=== PATIENT | female | born 1930 | race Caucasian/White ===

== ENCOUNTER → 2016-12-15 | Outpatient (CLI) | payer MEDICARE, BC ==
--- NOTE | 2016-12-15 11:25 | CR ---
EXAMINATION: Abdomen HISTORY: Hypertension COMPARISON: None TECHNIQUE: AP and upright views FINDINGS: There is no free air under the diaphragm. There is a nonobstructive bowel gas pattern. No abnormal calcifications. No organomegaly. Degenerative changes are noted within the lumbar spine and within the left hip. IMPRESSION: 1. Nonobstructive bowel gas pattern.
--- NOTE | 2016-12-15 16:21 | CR ---
EXAMINATION: Lumbar spine HISTORY: Macular degeneration COMPARISON: None TECHNIQUE: AP and lateral views of the lumbar spine FINDINGS: There is straightening of the normal lumbar lordosis with a trace levocurvature. The verte bral body heights appear grossly maintained. Marginal osteophytes are noted. The SI joints are symme tric. Bone mineralization is normal. Disc space narrowing is noted at L4-L5 and L5-S1. No fracture o r acute osseous abnormality demonstrated. IMPRESSION: Moderate degenerative changes within the lumbar spine without acute findings.
== END ==
LOC: MW.CHIM 10:01
PROVIDERS: ATTEND Internal Medicine
DX: I10 Essential (primary) hypertension (principal); H35.30 Unspecified macular degeneration; M47.816 Spondylosis without myelopathy or radiculopathy, lumbar region
CPT/HCPCS: 72100; 72100-26; 74020; 74020-26; 81001; G0463

== ENCOUNTER 2019-01-23 10:01 | Inpatient (IN) | payer MEDICARE, BC ==
[2019-01-23] MEDS ORDERED: Acetaminophen 325 MG Tab PO PRN (10:32)
[2019-01-23] MEDS ORDERED: Sodium Chloride 0.9% 2.5 ML Syringe FLUSH PRN (10:32)
--- NOTE | 2019-01-23 11:25 | PCM.HP ---
<Vijaya Medrano M - Last Filed: 01/23/19 13:56> H&P History of Present Illness - General Date of Service: 01/23/19 Admit Problem/Dx: Admission Diagnosis/Problem Admission Diagnosis/Problem Atrial fibrillation Source of Information: Patient, Old Records History Limitations: Reports: No Limitations - History of Present Illness Initial Comments - Free Text/Narative: This 88 year old female with pmh of paroxysmal atrial fibrillation, HTN and hx of partial gastrectomy presented today for loading of Sotalol for treatment of atrial fibrilliaton. Dr Flores recommends close monitoring while this medication is initiated. She reports she is feeling well, having some palpitations this morning, with HR as high as 140s, but reports her BP was well controlled. She denies chest pain or SOB. No fevers or chills. She has been taking her Xarelto nightly with her supper. Denies any other concerns currently. Will admitted to ICU for close monitoring for at least 3 days while Sotalol is initiated. Consult Dr Flores. Obtain EKG on admission along with basic labwork. - Related Data Allergies/Adverse Reactions: Allergies Allergy/AdvReac Type Severity Reaction Status Date / Time amlodipine besylate Allergy Cannot Verified 08/01/18 04:21 [From Lotrel] Remember benazepril HCl [From Lotrel] Allergy Cannot Verified 08/01/18 04:21 Remember iodine Allergy Hives Verified 01/23/19 10:38 meclizine Allergy Cannot Verified 08/01/18 04:21 Remember olmesartan medoxomil Allergy Cannot Verified 08/01/18 04:21 [From Benicar] Remember Penicillins Allergy Cannot Verified 08/01/18 04:21 Remember Sulfa (Sulfonamide Allergy Cannot Verified 08/01/18 04:21 Antibiotics) Remember sulfamethoxazole Allergy Cannot Verified 08/01/18 04:21 [From Bactrim] Remember trimethoprim [From Bactrim] Allergy Cannot Verified 08/01/18 04:21 Remember delcort Allergy Cannot Uncoded 08/01/18 04:21 Remember Home Medications: Home Meds Albuterol Sulfate [Proair Respiclick] 1 puff IH Q4HR PRN 08/01/18 [History] Brimonidine [Alphagan 0.2% Ophth Soln] 1 drop EYEBOTH TID 08/01/18 [History] Diltiazem HCl [Cartia Xt] 180 mg PO BID 08/01/18 [History] Esomeprazole [NexIUM] 40 mg PO DAILY 08/01/18 [History] Latanoprost [Xalatan] 1 drop EYEBOTH DAILY 08/01/18 [History] Losartan Potassium [Cozaar] 50 mg PO DAILY 08/01/18 [History] Rivaroxaban [Xarelto] 20 mg PO DAILY 08/01/18 [History] Rosuvastatin Calcium [Crestor] 40 mg PO DAILY 08/01/18 [History] methylPREDNISolone [Methylprednisolone] 4 mg PO DAILY 08/01/18 [History] Past Medical History HEENT History: Reports: Glaucoma Cardiovascular History: Reports: Afib, High Cholesterol, Hypertension. 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 Endocrine/Metabolic History: Denies: Diabetes, Type II - Infectious Disease History Infectious Disease History: Reports: Chicken Pox, Measles, Mumps - Past Surgical History GI Surgical History: Reports: Appendectomy, Other (See Below) Other GI Surgeries/Procedures: stomach tumor Female Surgical History: Reports: Hysterectomy Social & Family History - Family History Family Medical History: Noncontributory - Tobacco Use Smoking Status *Q: Never Smoker Second Hand Smoke Exposure: No - Caffeine Use Caffeine Use: Reports: None - Recreational Drug Use Recreational Drug Use: No - Living Situation & Occupation Occupation: Retired H&P Review of Systems - Review of Systems: Review Of Systems: See Below General: Reports: No Symptoms. Denies: Fever, Chills, Malaise, Weakness HEENT: Reports: No Symptoms. Denies: Headaches, Sinus Congestion, Vertigo Pulmonary: Reports: No Symptoms. Denies: Shortness of Breath Cardiovascular: Reports: Palpitations. Denies: Chest Pain, Dyspnea on Exertion , Edema Gastrointestinal: Reports: No Symptoms. Denies: Abdominal Pain, Constipation, Diarrhea, Nausea, Vomiting Genitourinary: Reports: No Symptoms Musculoskeletal: Reports: No Symptoms Skin: Reports: No Symptoms Psychiatric: Reports: No Symptoms Neurological: Reports: No Symptoms Hematologic/Lymphatic: Reports: No Symptoms Immunologic: Reports: No Symptoms Exam - Exam Exam: See Below - Vital Signs Weight: 61.915 kg - Exam General: Alert, Oriented, Cooperative Neck: Supple, Trachea Midline Lungs: Clear to Auscultation, Normal Respiratory Effort Cardiovascular: Irregular Rhythm, Tachycardia. No: Systolic Murmur, Diastolic Murmur GI/Abdominal Exam: Normal Bowel Sounds, Soft, Non-Tender Back Exam: Normal Inspection, Full Range of Motion Extremities: Normal Inspection, Normal Range of Motion, Non-Tender, No Pedal Edema Neuro Extensive - Mental Status: Alert, Oriented x3, Normal Mood/Affect Neuro Extensive - Motor, Sensory, Reflexes: CN II-XII Intact Psychiatric: Alert, Normal Affect, Normal Mood - Patient Data Lab Results Last 24 hrs: Laboratory Results - last 24 hr 01/23/19 Range/Units 10:45 WBC 6.64 (4.0-11.0) K/uL RBC 4.75 (4.30-5.90) M/uL Hgb 13.7 (12.0-16.0) g/dL Hct 41.0 (36.0-46.0) % MCV 86.3 (80.0-98.0) fL MCH 28.8 (27.0-32.0) pg MCHC 33.4 (31.0-37.0) g/dL RDW Std Deviation 45.8 (28.0-62.0) fl RDW Coeff of Vickey 15 (11.0-15.0) % Plt Count 227 (150-400) K/uL MPV 10.60 (7.40-12.00) fL Nucleated RBC % 0.0 /100WBC Nucleated RBCs # 0 K/uL Result Diagrams: 01/23/19 10:45 01/23/19 10:45 EKG INTERPRETATION EKG Date: 01/23/19 Rhythm: A-Fib Rate (Beats/Min): 140 P-Wave: Present QRS: Normal ST-T: Normal QT: Normal - Problem List (1) Paroxysmal atrial fibrillation SNOMED Code(s): 544456534 ICD Code: I48.0 - PAROXYSMAL ATRIAL FIBRILLATION Status: Acute Current Visit: Yes (2) Anticoagulated SNOMED Code(s): 445878443, 954174614 ICD Code: Z79.01 - MYCOLOGY TEACHER (CURRENT) USE OF ANTICOAGULANTS Status: Chronic Current Visit: Yes (3) HTN (hypertension) SNOMED Code(s): 84773456 ICD Code: I10 - ESSENTIAL (PRIMARY) HYPERTENSION Status: Chronic Current Visit: Yes (4) GERD (gastroesophageal reflux disease) SNOMED Code(s): 786342385 ICD Code: K21.9 - GASTRO-ESOPHAGEAL REFLUX DISEASE WITHOUT ESOPHAGITIS Status: Chronic Current Visit: Yes Qualifiers: Esophagitis presence: without esophagitis Qualified Code(s): K21.9 - Gastro -esophageal reflux disease without esophagitis (5) Macular degeneration SNOMED Code(s): 996795555 ICD Code: H35.30 - UNSPECIFIED MACULAR DEGENERATION Status: Chronic Current Visit: Yes (6) Carotid atherosclerosis SNOMED Code(s): 272775544 ICD Code: I65.29 - OCCLUSION AND STENOSIS OF UNSPECIFIED CAROTID ARTERY Status: Chronic Current Visit: Yes Problem List Initiated/Reviewed/Updated: Yes Orders Last 24hrs: Active Orders 24 hr Category Date Time Status Patient Status [ADT] Routine ADT 01/23/19 10:32 Active Cardiac Monitoring Discontinue [RC] Click to Edit Care 01/23/19 11:24 Ordered Cardiac Monitoring [RC] . DIRECTED Care 01/23/19 11:24 Ordered EKG Documentation Completion [RC] STAT Care 01/23/19 10:55 Active Intake and Output [RC] QSHIFT Care 01/23/19 10:33 Active Notify Provider Consults [RC] ASDIRECTED Care 01/23/19 10:34 Active Oxygen Therapy [RC] PRN Care 01/23/19 10:32 Active Telemetry Monitoring [Cardiac Monitoring] [RC] . Care 01/23/19 10:32 Active DIRECTED Telemetry Monitoring [Cardiac Monitoring] [RC] . Care 01/23/19 10:55 Inactive DIRECTED Up With Assistance [RC] ASDIRECTED Care 01/23/19 10:32 Active VTE/DVT Education [RC] PER UNIT ROUTINE Care 01/23/19 10:32 Active Vital Signs [RC] Q4H Care 01/23/19 10:32 Active Consult to Physician [CONS] Routine Cons 01/23/19 10:32 Active Heart Healthy Diet [DIET] Diet 01/23/19 Lunch Active B-TYPE NATRIURETIC PEPTIDE,BNP [CHEM] Routine Lab 01/23/19 10:45 Received COMPREHENSIVE METABOLIC PN,CMP [CHEM] Routine Lab 01/23/19 10:45 Received MAGNESIUM [CHEM] Routine Lab 01/23/19 10:45 Received Acetaminophen [Tylenol] Med 01/23/19 10:32 Active 650 mg PO Q4H PRN Sodium Chloride 0.9% [Saline Flush] Med 01/23/19 10:32 Active 2.5 ml FLUSH ASDIRECTED PRN Saline Lock Insert [OM.PC] Routine Oth 01/23/19 10:32 Ordered Medication Orders Acetaminophen (Tylenol) 650 mg PO Q4H PRN PRN Reason: Pain (mild 1-3) Sodium Chloride (Saline Flush) 2.5 ml FLUSH ASDIRECTED PRN PRN Reason: Keep Vein Open Assessment/Plan Comment:: This 88 year old female admitted with paroxysmal atrial fibrilliation to initiate Sotalol or Tikosyn 1. Paroxysmal afib: Consult Dr Flores. baseline EKG and labwork obtained. Medication dosing per Dr Flores. Will monitor in ICU on cardiac monitoring. Took Diltiazem this morning. HR remains 140s on monitoring. Continue Xarelto. 2. HTN: Continue Diltiazem and Losartan. BP stable. Monitor. 3. GERD: Stable, worse overnight. Continue PPI at bedtime. VTE prophylaxis: Xarelto. Dispo: at least 3 days for monitoring while cardiac medication initiated to monitor for arrhythmias, Ventricular arrhythmias and bradycardia. <Sachin Robbins - Last Filed: 01/23/19 17:25> H&P History of Present Illness - General Admit Problem/Dx: Admission Diagnosis/Problem Admission Diagnosis/Problem Atrial fibrillation I have seen and examined to patient independently of Vijaya Medrano CNP. I have discussed the case for care of this patient with her. I have reviewed and approve of the plan of care as outlined by PEÑA. Please see orders. Patient was admitted for inpatient titration of sotolol by home sales consultant. Exam - Vital Signs Vital Signs: Last Vital Signs Temp 36.4 C 01/23/19 16:00 Pulse 149 H 01/23/19 10:10 Resp 20 01/23/19 17:00 BP 157/109 H 01/23/19 17:00 Pulse Ox 97 01/23/19 17:00 - Patient Data Lab Results Last 24 hrs: Laboratory Results - last 24 hr 01/23/19 01/23/19 01/23/19 Range/Units 10:45 10:45 10:45 WBC 6.64 (4.0-11.0) K/uL RBC 4.75 (4.30-5.90) M/uL Hgb 13.7 (12.0-16.0) g/dL Hct 41.0 (36.0-46.0) % MCV 86.3 (80.0-98.0) fL MCH 28.8 (27.0-32.0) pg MCHC 33.4 (31.0-37.0) g/dL RDW Std Deviation 45.8 (28.0-62.0) fl RDW Coeff of Vickey 15 (11.0-15.0) % Plt Count 227 (150-400) K/uL MPV 10.60 (7.40-12.00) fL Nucleated RBC % 0.0 /100WBC Nucleated RBCs # 0 K/uL Sodium 143 (136-145) mmol/L Potassium 4.3 (3.5-5.1) mmol/L Chloride 107 (98-107) mmol/L Carbon Dioxide 23.6 (21.0-32.0) mmol/L BUN 22 H (7.0-18.0) mg/dL Creatinine 1.1 H (0.6-1.0) mg/dL Est Cr Clr Drug Dosing 33.03 mL/min Estimated GFR (MDRD) 47.1 ml/min Glucose 93 (74-106) mg/dL Calcium 9.1 (8.5-10.1) mg/dL Magnesium 2.2 (1.8-2.4) mg/dL Total Bilirubin 0.4 (0.2-1.0) mg/dL AST 12 L (15-37) IU/L ALT 25 (14-63) IU/L Alkaline Phosphatase 82 (46-116) U/L B-Natriuretic Peptide 227 H (<100) PG/ML Total Protein 6.9 (6.4-8.2) g/dL Albumin 3.9 (3.4-5.0) g/dL Globulin 3.0 (2.6-4.0) g/dL Albumin/Globulin Ratio 1.3 (0.9-1.6) Result Diagrams: 01/23/19 10:45 01/23/19 10:45 Orders Last 24hrs: Active Orders 24 hr Category Date Time Status Patient Status [ADT] Routine ADT 01/23/19 10:32 Active Cardiac Monitoring [RC] . DIRECTED Care 01/23/19 11:24 Active EKG 12 Lead [EKG Documentation Completion] [RC] PRN Care 01/23/19 17:13 Active EKG Documentation Completion [RC] STAT Care 01/23/19 10:55 Active Intake and Output [RC] Q12H Care 01/23/19 10:33 Active Oxygen Therapy [RC] PRN Care 01/23/19 10:32 Active Telemetry Monitoring [Cardiac Monitoring] [RC] . Care 01/23/19 10:55 Inactive DIRECTED Telemetry Monitoring [Cardiac Monitoring] [RC] Q8H Care 01/23/19 10:32 Active Up With Assistance [RC] ASDIRECTED Care 01/23/19 10:32 Active VTE/DVT Education [RC] PER UNIT ROUTINE Care 01/23/19 10:32 Active Vital Signs [RC] Q1H Care 01/23/19 10:32 Active Consult to Physician [CONS] Routine Cons 01/23/19 10:32 Active Heart Healthy Diet [DIET] Diet 01/23/19 Lunch Active BASIC METABOLIC PANEL,BMP [CHEM] AM Lab 01/24/19 05:11 Ordered MG [MAGNESIUM] [CHEM] AM Lab 01/24/19 05:11 Ordered Acetaminophen [Tylenol] Med 01/23/19 10:32 Active 650 mg PO Q4H PRN Albuterol [Ventolin HFA] Med 01/23/19 13:54 Active 1 gm INH Q4H PRN Brimonidine [Alphagan 0.2% Ophth Soln] Med 01/23/19 14:00 Active 0 ml EYEBOTH TID Diltiazem [Cardizem CD] Med 01/23/19 21:00 Active 180 mg PO BID Latanoprost [Xalatan 0.005% Ophth Soln] Med 01/24/19 09:00 Active 0 ml EYEBOTH DAILY Losartan [Cozaar] Med 01/24/19 09:00 Active 50 mg PO DAILY Non-Formulary Medication [NF Drug] Med 01/24/19 12:00 Active 1 each PO BID Omeprazole Med 01/23/19 21:00 Active 20 mg PO BEDTIME Rivaroxaban [Xarelto] Med 01/23/19 17:30 Active 20 mg PO DAILY@1730 Rosuvastatin [Crestor] Med 01/23/19 17:30 Active 40 mg PO DAILY@1730 Sodium Chloride 0.9% [Saline Flush] Med 01/23/19 10:32 Active 2.5 ml FLUSH ASDIRECTED PRN Saline Lock Insert [OM.PC] Routine Oth 01/23/19 10:32 Ordered Medication Orders Acetaminophen (Tylenol) 650 mg PO Q4H PRN PRN Reason: Pain (mild 1-3) Albuterol (Ventolin Hfa) 1 gm INH Q4H PRN PRN Reason: sob Brimonidine Tartrate (Alphagan 0.2% Ophth Soln) 0 ml EYEBOTH TID BEKA Diltiazem HCl (Cardizem Cd) 180 mg PO BID BEKA Latanoprost (Xalatan 0.005% Ophth Soln) 0 ml EYEBOTH DAILY BEKA Losartan Potassium (Cozaar) 50 mg PO DAILY BEKA Tikosyn 125 Mcg 1 each PO BID BEKA Omeprazole (Omeprazole) 20 mg PO BEDTIME BEKA Rivaroxaban (Xarelto) 20 mg PO DAILY@1730 BEKA Rosuvastatin Calcium (Crestor) 40 mg PO DAILY@1730 [facility] Sodium Chloride (Saline Flush) 2.5 ml FLUSH ASDIRECTED PRN PRN Reason: Keep Vein Open
[2019-01-23] MEDS ORDERED: Albuterol 8 GM Inhaler INH PRN (13:54)
[2019-01-23] MEDS: Rivaroxaban 10 MG Tab PO SCH (17:49)
[2019-01-23] MEDS: Brimonidine 0.2% Ophth Soln 5 ML Bottle EYEBOTH SCH ×2 (17:51→21:47)
[2019-01-23] MEDS: Rosuvastatin 10 MG Tab PO SCH (17:51)
--- NOTE | 2019-01-23 18:52 | CONS ---
DATE OF CONSULTATION: DATE OF : 1930 PRIMARY CARE PHYSICIAN: AMBAR VALE MD REASON FOR CONSULTATION: Antiarrhythmic drug loading. HISTORY: This is an 88-year-old female with history of paroxysmal atrial fibrillation, hypertension, GIST tumor, status post partial gastrectomy, also carotid stenosis, coronary calcification, hyperlipidemia. I admitted her electively for antiarrhythmic drug loading. Obviously, due to the coronary calcification, she is not eligible for class 1C antiarrhythmic drug and also her creatinine clearance is 36, so the sotalol is contraindicated for atrial fibrillation. Her symptom of the heart racing started last Tuesday, like about a week ago. She has been on the Xarelto anticoagulation without stopping or interruption for at least more than 3 or 4 months. Her heart rate has fluctuated around 70 to 80 to 140, and initially when she started having the heart racing tachycardia, she started feeling dizzy, heart racing, shortness of breath, but currently when I increased the Cardizem to 180 twice a day, she started feeling better, but still gets some shortness of breath and tired with a fast heart rate still. PAST MEDICAL HISTORY: Including hypertension, hyperlipidemia, colonic calcification, paroxysmal atrial fibrillation, hypertension, GIST tumor, hyperlipidemia. ALLERGIES: She has multiple allergies including iodine causing hives as well as Bactrim, Benicar causing diarrhea, lisinopril causing cough, Lotrel cap causing cough as well as the metoprolol causing dizziness, and penicillin causing rash and also meclizine. CURRENT MEDICATIONS: Including diltiazem recently increased from 120 to 180 twice a day as well as losartan was recently decreased from 75 to 50 once a day, Xarelto 20 mg once a day, rosuvastatin 40 mg once a day. She is also on inhalers. SOCIAL HISTORY: She denied drinking, drug use, or alcohol consumption. FAMILY HISTORY: Noncontributory. PHYSICAL EXAMINATION: VITAL SIGNS: Initial blood pressure was 112/93, heart rate of 70 to 140, temperature 97.6, O2 saturation is 98 on 2 L. HEENT: Not pale. No jaundice. NECK: JVD with tyson A wave is mildly positive. HEART: Totally irregular, tachycardia. LUNGS: Bilateral crackle. ABDOMEN: Soft, nontender. Bowel sounds are present. No hepatosplenomegaly. LEGS: No edema. INVESTIGATION: EKG show atrial flutter, probably typical flutter. Heart rate of 142. CBC showed WBC 6, hematocrit of 41, platelet 227. Sodium 143, potassium 4.3, chloride 107, bicarb is 23, BUN 22, creatinine 1.1. BNP 227. Magnesium is 2.2. ASSESSMENT AND PLAN: This is an 88-year-old female, history of paroxysmal atrial fibrillation as well as persistent atrial flutter, has been on anticoagulation for at least more than a month. She is symptomatic for atrial flutter and I would load her for antiarrhythmic drug medication prior to the cardioversion. She probably may need a CONSTANCE as well due to her age and the risks of having a stroke from atrial fibrillation and atrial flutter. Due to her creatinine clearance of 36, so the sotalol is contraindicated, so the final option that we have is the Tikosyn. Based on her creatinine, we started her on the lowest dose which is 125 mcg. Due to iodine allergy, amiodarone was contraindicated and we will start her on the Tikosyn 125 mcg twice a day. EKG needs to be done prior to heavy doses and magnesium needs to be more than 2, potassium needs to be more than 4 to 4.5, and she probably needs cardioversion as an outpatient, but also possibly need a CONSTANCE prior to cardioversion, which I will arrange as an outpatient. PETER HERNANDEZ /[id number]
[2019-01-23] MEDS: Diltiazem 180 MG Cap.CD PO SCH (20:05)
[2019-01-23] MEDS: Omeprazole 20 MG Cap.CR PO SCH (20:05)
[2019-01-23] MEDS ORDERED: Latanoprost 0.005% Ophth Soln 2.5 ML Bottle EYEBOTH SCH (21:00)
[2019-01-23] MEDS: Losartan 50 MG Tab PO SCH (21:02)
[2019-01-24] MEDS: Brimonidine 0.2% Ophth Soln 5 ML Bottle EYEBOTH SCH ×2 (06:07→14:40)
[2019-01-24 06:14] LABS: CHLORIDE,CL 108 mmol/L (98-107); SODIUM,NA 142 mmol/L (136-145)
[2019-01-24] MEDS: Diltiazem 180 MG Cap.CD PO SCH ×2 (08:00→20:06)
--- NOTE | 2019-01-24 08:44 | PCM.PN ---
<Vijaya Medrano M - Last Filed: 01/24/19 08:46> - General Info Date of Service: 01/24/19 Admission Dx/Problem (Free Text): Admission Diagnosis/Problem Admission Diagnosis/Problem Atrial fibrillation Subjective Update: Doing well this morning, no chest pain. No shortness of breath. Eager to start medication, but nervous as well. Continues to have palpitations. Functional Status: Reports: Pain Controlled, Tolerating Diet, Ambulating, Urinating - Review of Systems General: Reports: No Symptoms. Denies: Weakness, Fatigue, Malaise HEENT: Reports: No Symptoms. Denies: Headaches, Sore Throat, Visual Changes Pulmonary: Reports: No Symptoms. Denies: Shortness of Breath, Cough, Sputum Cardiovascular: Reports: Palpitations. Denies: Orthopnea, Edema Gastrointestinal: Reports: No Symptoms. Denies: Abdominal Pain, Nausea, Vomiting Genitourinary: Reports: No Symptoms. Denies: Dysuria, Frequency, Burning Musculoskeletal: Reports: No Symptoms Skin: Reports: No Symptoms Neurological: Reports: No Symptoms Psychiatric: Reports: No Symptoms - Patient Data Vitals - Most Recent: Last Vital Signs Temp 97.8 F 01/24/19 07:50 Pulse 149 H 01/23/19 10:10 Resp 18 01/24/19 08:05 BP 154/100 H 01/24/19 08:05 Pulse Ox 97 01/24/19 08:05 Weight - Most Recent: 62.369 kg I&O - Last 24 Hours: Intake & Output 01/23/19 01/24/19 01/24/19 22:59 06:59 14:59 Intake Total 800 1000 Output Total 650 1750 Balance 150 -750 Lab Results Last 24 Hours: Laboratory Results - last 24 hr 01/23/19 01/23/19 01/23/19 Range/Units 10:45 10:45 10:45 WBC 6.64 (4.0-11.0) K/uL RBC 4.75 (4.30-5.90) M/uL Hgb 13.7 (12.0-16.0) g/dL Hct 41.0 (36.0-46.0) % MCV 86.3 (80.0-98.0) fL MCH 28.8 (27.0-32.0) pg MCHC 33.4 (31.0-37.0) g/dL RDW Std Deviation 45.8 (28.0-62.0) fl RDW Coeff of Vickey 15 (11.0-15.0) % Plt Count 227 (150-400) K/uL MPV 10.60 (7.40-12.00) fL Nucleated RBC % 0.0 /100WBC Nucleated RBCs # 0 K/uL Sodium 143 (136-145) mmol/L Potassium 4.3 (3.5-5.1) mmol/L Chloride 107 (98-107) mmol/L Carbon Dioxide 23.6 (21.0-32.0) mmol/L BUN 22 H (7.0-18.0) mg/dL Creatinine 1.1 H (0.6-1.0) mg/dL Est Cr Clr Drug Dosing 33.03 mL/min Estimated GFR (MDRD) 47.1 ml/min Glucose 93 (74-106) mg/dL Calcium 9.1 (8.5-10.1) mg/dL Magnesium 2.2 (1.8-2.4) mg/dL Total Bilirubin 0.4 (0.2-1.0) mg/dL AST 12 L (15-37) IU/L ALT 25 (14-63) IU/L Alkaline Phosphatase 82 (46-116) U/L B-Natriuretic Peptide 227 H (<100) PG/ML Total Protein 6.9 (6.4-8.2) g/dL Albumin 3.9 (3.4-5.0) g/dL Globulin 3.0 (2.6-4.0) g/dL Albumin/Globulin Ratio 1.3 (0.9-1.6) 01/24/19 Range/Units 05:10 WBC (4.0-11.0) K/uL RBC (4.30-5.90) M/uL Hgb (12.0-16.0) g/dL Hct (36.0-46.0) % MCV (80.0-98.0) fL MCH (27.0-32.0) pg MCHC (31.0-37.0) g/dL RDW Std Deviation (28.0-62.0) fl RDW Coeff of Vickey (11.0-15.0) % Plt Count (150-400) K/uL MPV (7.40-12.00) fL Nucleated RBC % /100WBC Nucleated RBCs # K/uL Sodium 142 (136-145) mmol/L Potassium 4.1 (3.5-5.1) mmol/L Chloride 108 H (98-107) mmol/L Carbon Dioxide 24.9 (21.0-32.0) mmol/L BUN 20 H (7.0-18.0) mg/dL Creatinine 0.8 (0.6-1.0) mg/dL Est Cr Clr Drug Dosing 45.42 mL/min Estimated GFR (MDRD) > 60.0 ml/min Glucose 110 H (74-106) mg/dL Calcium 8.9 (8.5-10.1) mg/dL Magnesium 2.1 (1.8-2.4) mg/dL Total Bilirubin (0.2-1.0) mg/dL AST (15-37) IU/L ALT (14-63) IU/L Alkaline Phosphatase (46-116) U/L B-Natriuretic Peptide (<100) PG/ML Total Protein (6.4-8.2) g/dL Albumin (3.4-5.0) g/dL Globulin (2.6-4.0) g/dL Albumin/Globulin Ratio (0.9-1.6) Med Orders - Current: Current Medications Acetaminophen (Tylenol) 650 mg PO Q4H PRN PRN Reason: Pain (mild 1-3) Albuterol (Ventolin Hfa) 1 gm INH Q4H PRN PRN Reason: sob Brimonidine Tartrate (Alphagan 0.2% Ophth Soln) 0 ml EYEBOTH TID [facility] Last Admin: 01/24/19 06:07 Dose: 1 drop Diltiazem HCl (Cardizem Cd) 180 mg PO BID [facility] Last Admin: 01/24/19 08:00 Dose: 180 mg Latanoprost (Xalatan 0.005% Ophth Soln) 0 ml EYEBOTH BEDTIME [facility] Last Admin: 01/23/19 21:31 Dose: 1 drop Losartan Potassium (Cozaar) 50 mg PO BEDTIME [facility] Last Admin: 01/23/19 21:02 Dose: 50 mg Tikosyn 125 Mcg 1 each PO BID [facility] Omeprazole (Omeprazole) 20 mg PO BEDTIME [facility] Last Admin: 01/23/19 20:05 Dose: 20 mg Rivaroxaban (Xarelto) 20 mg PO DAILY@1730 [facility] Last Admin: 01/23/19 17:49 Dose: 20 mg Rosuvastatin Calcium (Crestor) 40 mg PO DAILY@1730 [facility] Last Admin: 01/23/19 17:51 Dose: 40 mg Sodium Chloride (Saline Flush) 2.5 ml FLUSH ASDIRECTED PRN PRN Reason: Keep Vein Open Discontinued Medications Latanoprost (Xalatan 0.005% Ophth Soln) 0 ml EYEBOTH DAILY [facility] Losartan Potassium (Cozaar) 50 mg PO DAILY [facility] - Exam General: Alert, Oriented, Cooperative, No Acute Distress Lungs: Clear to Auscultation, Normal Respiratory Effort Cardiovascular: Irregular Rhythm, Tachycardia (140s) GI/Abdominal Exam: Normal Bowel Sounds, Soft, Non-Tender, No Organomegaly Extremities: Normal Inspection, Normal Range of Motion, Non-Tender, No Pedal Edema Neurological: No New Focal Deficit Psy/Mental Status: Alert, Normal Affect, Normal Mood - Problem List & Annotations (1) Paroxysmal atrial fibrillation SNOMED Code(s): 308398371 Code(s): I48.0 - PAROXYSMAL ATRIAL FIBRILLATION Status: Acute Current Visit: Yes (2) Anticoagulated SNOMED Code(s): 138659059, 607592654 Code(s): Z79.01 - MCFP (CURRENT) USE OF ANTICOAGULANTS Status: Chronic Current Visit: Yes (3) HTN (hypertension) SNOMED Code(s): 16917524 Code(s): I10 - ESSENTIAL (PRIMARY) HYPERTENSION Status: Chronic Current Visit: Yes (4) GERD (gastroesophageal reflux disease) SNOMED Code(s): 024155986 Code(s): K21.9 - GASTRO-ESOPHAGEAL REFLUX DISEASE WITHOUT ESOPHAGITIS Status: Chronic Current Visit: Yes Qualifiers: Esophagitis presence: without esophagitis Qualified Code(s): K21.9 - Gastro -esophageal reflux disease without esophagitis (5) Macular degeneration SNOMED Code(s): 011490694 Code(s): H35.30 - UNSPECIFIED MACULAR DEGENERATION Status: Chronic Current Visit: Yes (6) Carotid atherosclerosis SNOMED Code(s): 423338128 Code(s): I65.29 - OCCLUSION AND STENOSIS OF UNSPECIFIED CAROTID ARTERY Status: Chronic Current Visit: Yes - Problem List Review Problem List Initiated/Reviewed/Updated: Yes - My Orders Last 24 Hours: My Active Orders 01/23/19 10:32 Patient Status [ADT] Routine Oxygen Therapy [RC] PRN Telemetry Monitoring [Cardiac Monitoring] [RC] Q8H Up With Assistance [RC] ASDIRECTED VTE/DVT Education [RC] PER UNIT ROUTINE Vital Signs [RC] Q1H Consult to Physician [CONS] Routine Acetaminophen [Tylenol] 650 mg PO Q4H PRN Sodium Chloride 0.9% [Saline Flush] 2.5 ml FLUSH ASDIRECTED PRN Saline Lock Insert [OM.PC] Routine 01/23/19 10:33 Intake and Output [RC] Q12H 01/23/19 11:24 Cardiac Monitoring [RC] . DIRECTED 01/23/19 13:54 Albuterol [Ventolin HFA] 1 gm INH Q4H PRN 01/23/19 14:00 Brimonidine [Alphagan 0.2% Ophth Soln] 0 ml EYEBOTH TID 01/23/19 17:30 Rivaroxaban [Xarelto] 20 mg PO DAILY@1730 Rosuvastatin [Crestor] 40 mg PO DAILY@1730 01/23/19 21:00 Diltiazem [Cardizem CD] 180 mg PO BID Latanoprost [Xalatan 0.005% Ophth Soln] 0 ml EYEBOTH BEDTIME Losartan [Cozaar] 50 mg PO BEDTIME Omeprazole 20 mg PO BEDTIME 01/23/19 Lunch Heart Healthy Diet [DIET] - Plan Plan:: This 88 year old female admitted with paroxysmal atrial fibrillation to initiate Tikosyn 1. Paroxysmal afib and persistent: Consult Dr Flores. Tikosyn to start this afternoon, EKG prior to dosing. Magnesium 2.1 today and K+ 4.1, monitor daily and keep Mg above 2.0 and K+ 4-4.5. HR remains 140s on monitoring. Continue Diltiazem and Xarelto. 2. HTN: Continue Diltiazem and Losartan. BP stable. Monitor. 3. GERD: Stable, Continue PPI at bedtime. VTE prophylaxis: Xarelto. Dispo: at least 3 days for monitoring while cardiac medication initiated to monitor for arrhythmias, Ventricular arrhythmias and bradycardia. <Sachin Robbins M - Last Filed: 01/24/19 09:35> - General Info Admission Dx/Problem (Free Text): I have seen and examined to patient independently of Vijaya Medrano CNP. I have discussed the case for care of this patient with her. I have reviewed and approve of the plan of care as outlined by PRESCHOOL LEAD TEACHER. Please see orders. - Patient Data Vitals - Most Recent: Last Vital Signs Temp 36.6 C 01/24/19 07:50 Pulse 149 H 01/23/19 10:10 Resp 20 01/24/19 09:00 BP 137/90 01/24/19 09:00 Pulse Ox 95 01/24/19 09:00 I&O - Last 24 Hours: Intake & Output 01/23/19 01/24/19 01/24/19 22:59 06:59 14:59 Intake Total 800 1000 Output Total 650 1750 Balance 150 -750 Lab Results Last 24 Hours: Laboratory Results - last 24 hr 01/23/19 01/23/19 01/23/19 Range/Units 10:45 10:45 10:45 WBC 6.64 (4.0-11.0) K/uL RBC 4.75 (4.30-5.90) M/uL Hgb 13.7 (12.0-16.0) g/dL Hct 41.0 (36.0-46.0) % MCV 86.3 (80.0-98.0) fL MCH 28.8 (27.0-32.0) pg MCHC 33.4 (31.0-37.0) g/dL RDW Std Deviation 45.8 (28.0-62.0) fl RDW Coeff of Vickey 15 (11.0-15.0) % Plt Count 227 (150-400) K/uL MPV 10.60 (7.40-12.00) fL Nucleated RBC % 0.0 /100WBC Nucleated RBCs # 0 K/uL Sodium 143 (136-145) mmol/L Potassium 4.3 (3.5-5.1) mmol/L Chloride 107 (98-107) mmol/L Carbon Dioxide 23.6 (21.0-32.0) mmol/L BUN 22 H (7.0-18.0) mg/dL Creatinine 1.1 H (0.6-1.0) mg/dL Est Cr Clr Drug Dosing 33.03 mL/min Estimated GFR (MDRD) 47.1 ml/min Glucose 93 (74-106) mg/dL Calcium 9.1 (8.5-10.1) mg/dL Magnesium 2.2 (1.8-2.4) mg/dL Total Bilirubin 0.4 (0.2-1.0) mg/dL AST 12 L (15-37) IU/L ALT 25 (14-63) IU/L Alkaline Phosphatase 82 (46-116) U/L B-Natriuretic Peptide 227 H (<100) PG/ML Total Protein 6.9 (6.4-8.2) g/dL Albumin 3.9 (3.4-5.0) g/dL Globulin 3.0 (2.6-4.0) g/dL Albumin/Globulin Ratio 1.3 (0.9-1.6) 01/24/19 Range/Units 05:10 WBC (4.0-11.0) K/uL RBC (4.30-5.90) M/uL Hgb (12.0-16.0) g/dL Hct (36.0-46.0) % MCV (80.0-98.0) fL MCH (27.0-32.0) pg MCHC (31.0-37.0) g/dL RDW Std Deviation (28.0-62.0) fl RDW Coeff of Vickey (11.0-15.0) % Plt Count (150-400) K/uL MPV (7.40-12.00) fL Nucleated RBC % /100WBC Nucleated RBCs # K/uL Sodium 142 (136-145) mmol/L Potassium 4.1 (3.5-5.1) mmol/L Chloride 108 H (98-107) mmol/L Carbon Dioxide 24.9 (21.0-32.0) mmol/L BUN 20 H (7.0-18.0) mg/dL Creatinine 0.8 (0.6-1.0) mg/dL Est Cr Clr Drug Dosing 45.42 mL/min Estimated GFR (MDRD) > 60.0 ml/min Glucose 110 H (74-106) mg/dL Calcium 8.9 (8.5-10.1) mg/dL Magnesium 2.1 (1.8-2.4) mg/dL Total Bilirubin (0.2-1.0) mg/dL AST (15-37) IU/L ALT (14-63) IU/L Alkaline Phosphatase (46-116) U/L B-Natriuretic Peptide (<100) PG/ML Total Protein (6.4-8.2) g/dL Albumin (3.4-5.0) g/dL Globulin (2.6-4.0) g/dL Albumin/Globulin Ratio (0.9-1.6) Med Orders - Current: Current Medications Acetaminophen (Tylenol) 650 mg PO Q4H PRN PRN Reason: Pain (mild 1-3) Albuterol (Ventolin Hfa) 1 gm INH Q4H PRN PRN Reason: sob Brimonidine Tartrate (Alphagan 0.2% Ophth Soln) 0 ml EYEBOTH TID [facility] Last Admin: 01/24/19 06:07 Dose: 1 drop Diltiazem HCl (Cardizem Cd) 180 mg PO BID [facility] Last Admin: 01/24/19 08:00 Dose: 180 mg Latanoprost (Xalatan 0.005% Ophth Soln) 0 ml EYEBOTH BEDTIME [facility] Last Admin: 01/23/19 21:31 Dose: 1 drop Losartan Potassium (Cozaar) 50 mg PO BEDTIME [facility] Last Admin: 01/23/19 21:02 Dose: 50 mg Tikosyn 125 Mcg 1 each PO BID [facility] Omeprazole (Omeprazole) 20 mg PO BEDTIME [facility] Last Admin: 01/23/19 20:05 Dose: 20 mg Rivaroxaban (Xarelto) 20 mg PO DAILY@1730 [facility] Last Admin: 01/23/19 17:49 Dose: 20 mg Rosuvastatin Calcium (Crestor) 40 mg PO DAILY@1730 [facility] Last Admin: 01/23/19 17:51 Dose: 40 mg Sodium Chloride (Saline Flush) 2.5 ml FLUSH ASDIRECTED PRN PRN Reason: Keep Vein Open Discontinued Medications Latanoprost (Xalatan 0.005% Ophth Soln) 0 ml EYEBOTH DAILY [facility] Losartan Potassium (Cozaar) 50 mg PO DAILY [facility]
[2019-01-24] MEDS ORDERED: Latanoprost 0.005% Ophth Soln 2.5 ML Bottle EYEBOTH SCH (09:00)
[2019-01-24] MEDS ORDERED: Losartan 50 MG Tab PO SCH (09:00)
[2019-01-24] MEDS ORDERED: Latanoprost 0.005% Ophth Soln 2.5 ML Bottle EYERT SCH (14:51)
[2019-01-24] MEDS: Rivaroxaban 10 MG Tab PO SCH (17:20)
[2019-01-24] MEDS: Rosuvastatin 10 MG Tab PO SCH (17:21)
[2019-01-24] MEDS: Omeprazole 20 MG Cap.CR PO SCH (20:01)
[2019-01-24] MEDS: Losartan 50 MG Tab PO SCH (20:01)
[2019-01-24] MEDS: Digoxin 125 MCG Tab PO SCH (20:39)
[2019-01-24] MEDS: Brimonidine 0.2% Ophth Soln 5 ML Bottle EYERT SCH (21:31)
[2019-01-25] MEDS: Brimonidine 0.2% Ophth Soln 5 ML Bottle EYERT SCH (06:12)
[2019-01-25] MEDS: Digoxin 125 MCG Tab PO SCH (08:27)
[2019-01-25] MEDS: Diltiazem 180 MG Cap.CD PO SCH (08:28)
--- NOTE | 2019-01-25 09:11 | PCM.DCSUM1 ---
<Vijaya Medrano M - Last Filed: 01/25/19 11:19> Discharge Summary - Hospital Course Brief History: This 88 year old female with pmh of paroxysmal atrial fibrillation, HTN and hx of partial gastrectomy presented today for loading of Sotalol for treatment of atrial fibrilliaton. Dr Flores recommends close monitoring while this medication is initiated. She reports she is feeling well, having some palpitations this morning, with HR as high as 140s, but reports her BP was well controlled. She denies chest pain or SOB. No fevers or chills. She has been taking her Xarelto nightly with her supper. Denies any other concerns currently. Will admitted to ICU for close monitoring for at least 3 days while Sotalol is initiated. Consult Dr Flores. Diagnosis: Stroke: No - Discharge Data Discharge Date: 01/25/19 Discharge Disposition: Home, Self-Care 01 Condition: Good - Discharge Diagnosis/Problem(s) (1) Paroxysmal atrial fibrillation SNOMED Code(s): 342175946 ICD Code: I48.0 - PAROXYSMAL ATRIAL FIBRILLATION Status: Acute (2) Anticoagulated SNOMED Code(s): 677565998, 128539421 ICD Code: Z79.01 - PRESCHOOL PROGRAM DIRECTOR (CURRENT) USE OF ANTICOAGULANTS Status: Chronic (3) HTN (hypertension) SNOMED Code(s): 24311961 ICD Code: I10 - ESSENTIAL (PRIMARY) HYPERTENSION Status: Chronic (4) GERD (gastroesophageal reflux disease) SNOMED Code(s): 624926585 ICD Code: K21.9 - GASTRO-ESOPHAGEAL REFLUX DISEASE WITHOUT ESOPHAGITIS Status: Chronic Qualifiers: Esophagitis presence: without esophagitis Qualified Code(s): K21.9 - Gastro -esophageal reflux disease without esophagitis (5) Macular degeneration SNOMED Code(s): 341893797 ICD Code: H35.30 - UNSPECIFIED MACULAR DEGENERATION Status: Chronic (6) Carotid atherosclerosis SNOMED Code(s): 881342864 ICD Code: I65.29 - OCCLUSION AND STENOSIS OF UNSPECIFIED CAROTID ARTERY Status: Chronic - Patient Summary/Data Consults: Consultations 01/23/19 10:32 Consult to Physician [CONS] Routine - Patient Instructions Diet: Heart Healthy Diet Activity: As Tolerated Showering/Bathing: May Shower Notify Provider of: Fever, Increased Pain, Swelling and Redness, Drainage, Nausea and/or Vomiting - Discharge Plan *PRESCRIPTION DRUG MONITORING PROGRAM REVIEWED*: Not Applicable *COPY OF PRESCRIPTION DRUG MONITORING REPORT IN PATIENT AMY: Not Applicable Prescriptions/Med Rec: Digoxin [Digitek] 125 mcg PO DAILY #15 tablet Rivaroxaban [Xarelto] 15 mg PO WITHDINNER #30 tablet Home Medications: Home Meds Albuterol Sulfate [Proair Respiclick] 1 puff IH Q4HR PRN 08/01/18 [History] Brimonidine [Alphagan 0.2% Ophth Soln] 1 drop EYERT TID 08/01/18 [History] Diltiazem HCl [Cartia Xt] 180 mg PO BID 08/01/18 [History] Esomeprazole [NexIUM] 40 mg PO DAILY 08/01/18 [History] Latanoprost [Xalatan 0.005% Ophth Soln] 1 drop EYERT DAILY 08/01/18 [History] Losartan Potassium [Cozaar] 50 mg PO DAILY 08/01/18 [History] Rosuvastatin Calcium [Crestor] 40 mg PO DAILY 08/01/18 [History] methylPREDNISolone [Methylprednisolone] 4 mg PO DAILY 08/01/18 [History] Digoxin [Digitek] 125 mcg PO DAILY #15 tablet 01/25/19 [Rx] Rivaroxaban [Xarelto] 15 mg PO WITHDINNER #30 tablet 01/25/19 [Rx] Oxygen Therapy Mode: Room Air Patient Handouts: Digoxin Toxicity, Electrical Cardioversion, Digoxin tablets or capsules - Discharge Summary/Plan Comment DC Time >30 min.: No Discharge Summary/Plan Comment: Discharge Diagnoses:" Jake Henderson was admitted and started on Tikosyn under the supervision of Dr Flores and monitored on telemetry. She remained afib, HR did decrease to 70-90s, but quickly returned to 140s. She was kept on Diltiazem [address] Flores started Digoxin 125 last evening. She will be discharged home today and follow up scheduled with Dr Flores for further management of a fib. - General Info Date of Service: 01/25/19 Admission Dx/Problem (Free Text: A fib Subjective Update: Feeling good this morning, no concerns for me. Has questions regarding cardiology follow up. Dr Flores will be by. No chest pain or SOB. Functional Status: Reports: Pain Controlled, Tolerating Diet, Ambulating, Urinating - Review of Systems General: Reports: No Symptoms. Denies: Fever, Weakness Pulmonary: Reports: No Symptoms. Denies: Shortness of Breath Cardiovascular: Reports: Palpitations (intermittent). Denies: Chest Pain Gastrointestinal: Reports: No Symptoms. Denies: Abdominal Pain Genitourinary: Reports: No Symptoms. Denies: Frequency Musculoskeletal: Reports: No Symptoms Skin: Reports: No Symptoms Neurological: Reports: No Symptoms Psychiatric: Reports: No Symptoms - Patient Data Vitals - Most Recent: Last Vital Signs Temp 97.8 F 01/25/19 07:45 Pulse 144 H 01/25/19 08:27 Resp 12 01/25/19 08:03 BP 161/101 H 01/25/19 08:03 Pulse Ox 97 01/25/19 08:03 Weight - Most Recent: 62.414 kg I&O - Last 24 hours: Intake & Output 01/24/19 01/25/19 01/25/19 22:59 06:59 14:59 Intake Total 880 790 Output Total 850 1850 Balance 30 -1060 Lab Results - Last 24 hrs: Laboratory Results - last 24 hr 01/25/19 Range/Units 06:05 Sodium 141 (136-145) mmol/L Potassium 4.0 (3.5-5.1) mmol/L Chloride 107 (98-107) mmol/L Carbon Dioxide 26.1 (21.0-32.0) mmol/L BUN 21 H (7.0-18.0) mg/dL Creatinine 1.0 (0.6-1.0) mg/dL Est Cr Clr Drug Dosing 36.34 mL/min Estimated GFR (MDRD) 52.6 ml/min Glucose 101 (74-106) mg/dL Calcium 9.1 (8.5-10.1) mg/dL Magnesium 2.1 (1.8-2.4) mg/dL Med Orders - Current: Current Medications Acetaminophen (Tylenol) 650 mg PO Q4H PRN PRN Reason: Pain (mild 1-3) Albuterol (Ventolin Hfa) 1 gm INH Q4H PRN PRN Reason: sob Brimonidine Tartrate (Alphagan 0.2% Ophth Soln) 0 ml EYERT TID [facility] Last Admin: 01/25/19 06:12 Dose: 1 drop Digoxin (Lanoxin) 125 mcg PO DAILY [facility] Last Admin: 01/25/19 08:27 Dose: 125 mcg Diltiazem HCl (Cardizem Cd) 180 mg PO BID [facility] Last Admin: 01/25/19 08:28 Dose: 180 mg Latanoprost (Xalatan 0.005% Ophth Soln) 0 ml EYERT BEDTIME [facility] Last Admin: 01/24/19 21:45 Dose: 1 drop Losartan Potassium (Cozaar) 50 mg PO BEDTIME [facility] Last Admin: 01/24/19 20:01 Dose: 50 mg Omeprazole (Omeprazole) 20 mg PO BEDTIME [facility] Last Admin: 01/24/19 20:01 Dose: 20 mg Rivaroxaban (Xarelto) 15 mg PO WITHDINNER [facility] Rosuvastatin Calcium (Crestor) 40 mg PO DAILY@1730 [facility] Last Admin: 01/24/19 17:21 Dose: 40 mg Sodium Chloride (Saline Flush) 2.5 ml FLUSH ASDIRECTED PRN PRN Reason: Keep Vein Open Discontinued Medications Brimonidine Tartrate (Alphagan 0.2% Ophth Soln) 0 ml EYEBOTH TID [facility] Last Admin: 01/24/19 14:40 Dose: 1 drop Latanoprost (Xalatan 0.005% Ophth Soln) 0 ml EYEBOTH DAILY [facility] Latanoprost (Xalatan 0.005% Ophth Soln) 0 ml EYEBOTH BEDTIME [facility] Last Admin: 01/23/19 21:31 Dose: 1 drop Losartan Potassium (Cozaar) 50 mg PO DAILY [facility] Tikosyn 125 Mcg 1 each PO BID [facility] Last Admin: 01/24/19 12:44 Dose: 1 each Tikosyn 125 Mcg 1 each PO BID [facility] Stop: 01/24/19 23:01 Tikosyn 125 Mcg 1 each PO 01/25/19@1000 [facility] Stop: 01/25/19 10:01 Tikosyn 125 Mcg 1 each PO Q12H [facility] Rivaroxaban (Xarelto) 20 mg PO DAILY@1730 [facility] Last Admin: 01/24/19 17:20 Dose: 20 mg - Exam General: Reports: Alert, Oriented, Cooperative Lungs: Reports: Clear to Auscultation, Normal Respiratory Effort Cardiovascular: Reports: Irregular Rhythm, Tachycardia GI/Abdominal Exam: Normal Bowel Sounds, Soft, Non-Tender, No Organomegaly Extremities: Normal Inspection, Normal Range of Motion Wound/Incisions: Reports: Healing Well Neurological: Reports: No New Focal Deficit Psy/Mental Status: Reports: Alert, Normal Affect, Normal Mood <Sachin Robbins - Last Filed: 01/25/19 11:50> Discharge Summary - Hospital Course HPI Initial Comments: I have seen and examined to patient independently of Vijaya Medrano CNP. I have discussed the case for care of this patient with her. I have reviewed and approve of the plan of care as outlined by PEÑA. Please see orders. - Patient Summary/Data Consults: Consultations 01/23/19 10:32 Consult to Physician [CONS] Routine - Patient Data Vitals - Most Recent: Last Vital Signs Temp 36.6 C 01/25/19 07:45 Pulse 144 H 01/25/19 08:27 Resp 20 01/25/19 09:00 BP 142/95 H 01/25/19 09:00 Pulse Ox 95 01/25/19 09:00 I&O - Last 24 hours: Intake & Output 01/24/19 01/25/19 01/25/19 22:59 06:59 14:59 Intake Total 880 790 Output Total 850 1850 Balance 30 -1060 Lab Results - Last 24 hrs: Laboratory Results - last 24 hr 01/25/19 Range/Units 06:05 Sodium 141 (136-145) mmol/L Potassium 4.0 (3.5-5.1) mmol/L Chloride 107 (98-107) mmol/L Carbon Dioxide 26.1 (21.0-32.0) mmol/L BUN 21 H (7.0-18.0) mg/dL Creatinine 1.0 (0.6-1.0) mg/dL Est Cr Clr Drug Dosing 36.34 mL/min Estimated GFR (MDRD) 52.6 ml/min Glucose 101 (74-106) mg/dL Calcium 9.1 (8.5-10.1) mg/dL Magnesium 2.1 (1.8-2.4) mg/dL Med Orders - Current: Current Medications Discontinued Medications Acetaminophen (Tylenol) 650 mg PO Q4H PRN PRN Reason: Pain (mild 1-3) Albuterol (Ventolin Hfa) 1 gm INH Q4H PRN PRN Reason: sob Brimonidine Tartrate (Alphagan 0.2% Ophth Soln) 0 ml EYEBOTH TID [facility]CLUD[facility] Last Admin: 01/24/19 14:40 Dose: 1 drop Brimonidine Tartrate (Alphagan 0.2% Ophth Soln) 0 ml EYERT TID [facility] Last Admin: 01/25/19 06:12 Dose: 1 drop Digoxin (Lanoxin) 125 mcg PO DAILY COUNT INCLUDES THE [facility] Last Admin: 01/25/19 08:27 Dose: 125 mcg Diltiazem HCl (Cardizem Cd) 180 mg PO BID COUNT INCLUDES THE [facility] Last Admin: 01/25/19 08:28 Dose: 180 mg Latanoprost (Xalatan 0.005% Ophth Soln) 0 ml EYEBOTH DAILY COUNT INCLUDES THE [facility] Latanoprost (Xalatan 0.005% Ophth Soln) 0 ml EYEBOTH BEDTIME COUNT INCLUDES THE [facility] Last Admin: 01/23/19 21:31 Dose: 1 drop Latanoprost (Xalatan 0.005% Ophth Soln) 0 ml EYERT BEDTIME COUNT INCLUDES THE [facility] Last Admin: 01/24/19 21:45 Dose: 1 drop Losartan Potassium (Cozaar) 50 mg PO DAILY COUNT INCLUDES THE [facility] Losartan Potassium (Cozaar) 50 mg PO BEDTIME COUNT INCLUDES THE [facility] Last Admin: 01/24/19 20:01 Dose: 50 mg Tikosyn 125 Mcg 1 each PO BID COUNT INCLUDES THE [facility] Last Admin: 01/24/19 12:44 Dose: 1 each Tikosyn 125 Mcg 1 each PO BID COUNT INCLUDES THE [facility] Stop: 01/24/19 23:01 Tikosyn 125 Mcg 1 each PO 01/25/19@1000 COUNT INCLUDES THE [facility] Stop: 01/25/19 10:01 Tikosyn 125 Mcg 1 each PO Q12H COUNT INCLUDES THE [facility] Omeprazole (Omeprazole) 20 mg PO BEDTIME COUNT INCLUDES THE [facility] Last Admin: 01/24/19 20:01 Dose: 20 mg Rivaroxaban (Xarelto) 20 mg PO DAILY@1730 COUNT INCLUDES THE [facility] Last Admin: 01/24/19 17:20 Dose: 20 mg Rivaroxaban (Xarelto) 15 mg PO WITHDINNER COUNT INCLUDES THE [facility] Rosuvastatin Calcium (Crestor) 40 mg PO DAILY@1730 COUNT INCLUDES THE [facility] Last Admin: 01/24/19 17:21 Dose: 40 mg Sodium Chloride (Saline Flush) 2.5 ml FLUSH ASDIRECTED PRN PRN Reason: Keep Vein Open
[2019-01-25 09:49] VITALS: BP 142/95
[2019-01-25] MEDS ORDERED: Rivaroxaban 15 MG Tab PO SCH (17:30)
== END 2019-01-25 10:15 | disposition home or self-care (01) | DRG 310 ==
LOC: MW.MS 10:01 → MW.ICU 10:32
PROVIDERS: ADMIT Internal Medicine; ATTEND Internal Medicine
DX: I48.0 Paroxysmal atrial fibrillation (principal); I10 Essential (primary) hypertension; H40.9 Unspecified glaucoma; E78.00 Pure hypercholesterolemia, unspecified; J45.909 Unspecified asthma, uncomplicated; K21.9 Gastro-esophageal reflux disease without esophagitis; E11.9 Type 2 diabetes mellitus without complications; I65.29 Occlusion and stenosis of unspecified carotid artery; H35.30 Unspecified macular degeneration; E78.5 Hyperlipidemia, unspecified; Z88.1 Allergy status to other antibiotic agents; Z89.421 Acquired absence of other right toe(s); Z90.49 Acquired absence of other specified parts of digestive tract; Z90.89 Acquired absence of other organs; Z88.2 Allergy status to sulfonamides; Z88.8 Allergy status to other drugs, medicaments and biological substances; Z79.899 Other long term (current) drug therapy; Z88.0 Allergy status to penicillin
CPT/HCPCS: 36415; 80048; 80053; 83735; 83880; 85027; 93005; A9270-GY

== ENCOUNTER 2021-03-04 01:39 | Emergency (ER) | payer MEDICARE, BC ==
--- NOTE | 2021-03-04 02:56 | CR ---
INDICATION: Foot pain big toe TECHNIQUE: Foot radiograph 3 views right COMPARISON: None FINDINGS: Bone: No acute fractures or aggressive bone lesions are identified. 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 No evidence of osteomyelitis is seen. 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 The visualized hindfoot, midfoot, and forefoot joints are unremarkable in appearance. No significant ankle effusion is seen. Soft tissue: Small of soft tissue gas is present in the surgical bed of the 2nd digit. No radiopaque foreign bodies are seen. IMPRESSIONS: 1. No acute osseous injuries or abnormalities are noted. 2. No evidence of osteomyelitis is seen. If there is a high clinical index of suspicion, further evaluation with contrast-enhanced MRI or dual-isotope bone scan is recommended, given their higher sensitivities. Dictated by Pool Alexander MD @ 03/04/2021 2:54:03 AM Dictated by: Pool Alexander MD @ 03/04/2021 02:54:12 (Electronically Signed)
--- NOTE | 2021-03-04 03:07 | EDM.PDOC ---
ED HPI GENERAL MEDICAL PROBLEM - General Chief Complaint: Lower Extremity Injury/Pain Stated Complaint: BLOOD CLOTS MOVING IN RIGHT LEG Time Seen by Provider: 03/04/21 02:05 - History of Present Illness INITIAL COMMENTS - FREE TEXT/NARRATIVE: CHIEF COMPLAINT(S): Right lower leg pain HISTORY OF PRESENT ILLNESS: This is a 89-year-old woman with a past medical history of paroxysmal atrial fibrillation, hypertension, GERD, hyperlipidemia who comes to the emergency department with a chief complaint of right lower leg pain. The patient states that prior to arrival upon awakening she started to experience pain in her right leg. She describes the pain as aching and 8 out of 10. She denies any numbness, tingling, weakness. She denies any lower extremity edema. She denies any recent travel, recent surgery, prior history of DVT or PE. She denies any traumas or falls. She states that the pain does not radiate anywhere. She states that the pain has improved since being here. She states is improved that it is no longer hurting her. She states that she is mainly concerned that there is a clot. She has never had pain like this before. She states that she does have gout and sometimes her big toe hurts. REVIEW OF SYSTEMS: Constitutional: Denies fever, chills. Eyes: Denies eye pain Ears, Nose, Mouth, & Throat: Denies earache Cardiovascular: Denies chest pain Respiratory: Denies shortness of breath Gastrointestinal: Denies Nausea, vomiting, diarrhea, hematochezia. Genitourinary: Denies hematuria Skin:Denies a rash MSK: Positive for right lower leg pain Neurological: Denies blurred vision or numbness, tingling, weakness. Psychiatric: Denies depression PAST MEDICAL HISTORY: As per history of present illness and as reviewed below otherwise noncontributory. SURGICAL HISTORY: As per history of present illness and as reviewed below otherwise noncontributory. SOCIAL HISTORY: As per history of present illness and as reviewed below otherwise noncontributory. FAMILY HISTORY: As per history of present illness and as reviewed below otherwise noncontributory. EXAMINATION OF ORGAN SYSTEMS/BODY AREAS: Constitutional: Blood pressure was 224/97, heart rate 68, respiratory rate 18 with an oxygen saturation of 96% on room air. Temperature 36.2 General: Overall well-appearing elderly woman who is in no acute distress Psychiatric: Appropriate mood and affect. Eyes: No scleral icterus or conjunctival erythema ENMT: Moist mucous membranes. No pharyngeal erythema Cardiovascular: Regular, rate, and rhythm. No gallops, murmurs, or rubs. Bilateral upper extremity and lower extremity pulses symmetric and intact. No peripheral edema. No JVD. Bilateral lower extremity varicose veins which do not appear to be thrombosed, tender or have any evidence of superficial thrombophlebitis. Respiratory: Lungs clear to auscultation bilaterally. No wheezes, rales, or rhonchi. Gastrointestinal: Soft, non-tender, non-distended. Normoactive bowel sounds Genitourinary: No suprapubic tenderness Musculoskeletal: Normal range of motion. Patient has full range of motion. There is no tenderness to palpation anywhere along the patient's right leg. There is no deformity. The patient's right toe at the plantar aspect on the big toe is mildly tender to palpation. There is no deformity of this area Skin: No lesions or abrasions. Neurological: Alert, GCS 15 distal sensation is intact. MEDICAL DECISION MAKING AND COURSE IN THE ED WITH INTERPRETATION/REVIEW OF DIAGNOSTIC STUDIES: This is a 40-year-old woman with a past medical history of paroxysmal atrial fibrillation, hypertension who comes to the emergency department with acute right lower leg pain which has since resolved and acute right big toe pain which has since resolved. The patient is mildly hypertensive. Given the toe pain we will obtain a foot x-ray. Patient is concerned about a DVT therefore we will perform a bedside DVT ultrasound as ultrasound is not available for nonemergent ultrasound. A bedside ultrasound was conducted to assess for DVT with clinical indications of pain. The right extremity was assessed at 3 locations - common femoral vein, saphenofemoral junction, and the popliteal vein. Sequential compressions at these sites showed fully compressible veins. No sonographic evidence of DVT at these sites. The radiological images were viewed by myself along with reading the report from the radiologist. Foot x-ray reveals no evidence of injury or acute fracture. No evidence of osteomyelitis seen. 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 After imaging I did discuss results with the patient. At this time I did discuss with her that she would be stable for discharge. I discussed with her that bedside ultrasound is limited however there is no obvious DVT. I did recommend that she follow-up with her primary care physician to discuss further work-up. The patient does have some varicose veins of the lower extremities. I did discuss with her that if these are tender she should do warm compresses to this area 3-4 times a day and use Tylenol or Motrin for pain relief. She was amenable discharge at this time and had no further questions. DISPOSITION: The patient was discharged home in stable condition. The patient will follow up with primary care physician in 1 to 3 days CONDITION: Fair PROCEDURES: Bedside DVT ultrasound FINAL IMPRESSION(S)/DIAGNOSES: 1. Acute right lower extremity pain Yohan Camacho M.D. right lower leg Pain Score (Numeric/FACES): 8 - Related Data Allergies Allergy/AdvReac Type Severity Reaction Status Date / Time amlodipine besylate Allergy Cannot Verified 03/04/21 02:02 [From Lotrel] Remember benazepril HCl [From Lotrel] Allergy Cannot Verified 03/04/21 02:02 Remember iodine Allergy Hives Verified 03/04/21 02:02 meclizine Allergy Cannot Verified 03/04/21 02:02 Remember olmesartan medoxomil Allergy Cannot Verified 03/04/21 02:02 [From Benicar] Remember Penicillins Allergy Cannot Verified 03/04/21 02:02 Remember Sulfa (Sulfonamide Allergy Cannot Verified 03/04/21 02:02 Antibiotics) Remember sulfamethoxazole Allergy Cannot Verified 03/04/21 02:02 [From Bactrim] Remember trimethoprim [From Bactrim] Allergy Cannot Verified 03/04/21 02:02 Remember delcort Allergy Cannot Uncoded 03/04/21 02:02 Remember Home Meds: Home Meds Albuterol Sulfate [Proair Respiclick] 1 puff IH Q4HR PRN 08/01/18 [History] Brimonidine [Alphagan 0.2% Ophth Soln] 1 drop EYERT TID 08/01/18 [History] Esomeprazole [NexIUM] 40 mg PO DAILY 08/01/18 [History] Latanoprost [Xalatan 0.005% Ophth Soln] 1 drop EYERT DAILY 08/01/18 [History] Losartan Potassium [Cozaar] 50 mg PO DAILY 08/01/18 [History] Rosuvastatin Calcium [Crestor] 40 mg PO DAILY 08/01/18 [History] dilTIAZem HCL [Cartia Xt] 180 mg PO BID 08/01/18 [History] methylPREDNISolone [Methylprednisolone] 4 mg PO DAILY 08/01/18 [History] Digoxin [Digitek] 125 mcg PO DAILY #15 tablet 01/25/19 [Rx] Rivaroxaban [Xarelto] 15 mg PO WITHDINNER #30 tablet 01/25/19 [Rx] Past Medical History HEENT History: Reports: Glaucoma, Hard of Hearing Cardiovascular History: Reports: Afib, High Cholesterol, Hypertension Respiratory History: Reports: Asthma Gastrointestinal History: Reports: GERD PERSONAL FINANCIAL REPRESENTATIVE History: Reports: Other (See Below) Other PERSONAL FINANCIAL REPRESENTATIVE History: Total hysterectomy Musculoskeletal History: Reports: Amputation Other Musculoskeletal History: 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 Neurological History: Reports: None Psychiatric History: Reports: None Endocrine/Metabolic History: Reports: None 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 Hematologic History: Reports: None Immunologic History: Reports: None Oncologic (Cancer) History: Reports: None Dermatologic History: Reports: None - Infectious Disease History Infectious Disease History: Reports: Chicken Pox, Measles, Mumps - Past Surgical History Head Surgeries/Procedures: Reports: None GI Surgical History: Reports: Appendectomy Female Surgical History: Reports: Hysterectomy Social & Family History - Family History Family Medical History: No Pertinent Family History - Caffeine Use Caffeine Use: Reports: Tea - Recreational Drug Use Recreational Drug Use: No - Living Situation & Occupation Occupation: Retired Review of Systems - Review of Systems Review Of Systems: See Below ED EXAM, GENERAL - Physical Exam Exam: See Below Course - Vital Signs Last Recorded V/S: Last Vital Signs Temp 36.1 C 03/04/21 03:15 Pulse 63 03/04/21 03:15 Resp 16 03/04/21 03:15 BP 161/68 H 03/04/21 03:15 Pulse Ox 96 03/04/21 03:15 Departure - Departure Time of Disposition: 03:06 Disposition: Home, Self-Care 01 Condition: Fair Clinical Impression: Arthritis - Discharge Information *PRESCRIPTION DRUG MONITORING PROGRAM REVIEWED*: No *COPY OF PRESCRIPTION DRUG MONITORING REPORT IN PATIENT AMY: No Instructions: Osteoarthritis Referrals: Joseph Leslie MD [Primary Care Provider] - Forms: ED Department Discharge Additional Instructions: You were evaluated today on an emergent basis. At this time we did perform a bedside ultrasound of the most common areas of clots in your right leg. On our ultrasound today did not appear that there was any evidence of any clots. There was no rash or abnormality on examination. We did obtain an x-ray of your right foot which did show some moderate arthritis in your big toe. You are low risk for clots in your leg however I would like you to follow-up with your primary care physician to further discuss further work-up. This may include a formal ultrasound. Given the varicose veins you could have some inflammation of these veins. I do recommend that you use warm compresses to this area 3-4 times a day. You may use Tylenol and Motrin for pain relief. Please return if you have any new or worsening symptoms. [facility] [address] [place], [place] [id number] [facility] [address] [place] [id number] The patient is informed of any results of their evaluation and diagnostic workup and all questions are answered. They are given discharge instructions and return precautions. The patient is stable for discharge. The patient states they understand and agree with the plan and that they will return if their symptoms get worse or if they have any new concerns. The following information is given to patients seen in the emergency department who are being discharged to home. This information is to outline your options for follow-up care. We provide all patients seen in our emergency department with a follow-up referral. The need for follow-up, as well as the timing and circumstances, are variable depending upon the specifics of your emergency department visit. If you don't have a primary care physician on staff, we will provide you with a referral. We always advise you to contact your personal physician following an emergency department visit to inform them of the circumstance of the visit and for follow-up with them and/or the need for any referrals to a consulting specialist. The emergency department will also refer you to a specialist when appropriate. This referral assures that you have the opportunity for follow-up care with a specialist. All of these measure are taken in an effort to provide you with optimal care, which includes your follow-up. Under all circumstances we always encourage you to contact your private physician who remains a resource for coordinating your care. When calling for follow-up care, please make the office aware that this follow-up is from your recent emergency room visit. If for any reason you are refused follow-up, please contact the [facility] Emergency Department at and asked to speak to the emergency department charge nurse. Sepsis Event Note (ED) - Evaluation Sepsis Screening Result: No Definite Risk
[2021-03-04 03:43] VITALS: BP 161/68; PULSE 63
== END 2021-03-04 03:15 | disposition home or self-care (01) ==
LOC: MW.ED 01:39
DX: M19.071 Primary osteoarthritis, right ankle and foot (principal); I48.91 Unspecified atrial fibrillation; E78.00 Pure hypercholesterolemia, unspecified; I10 Essential (primary) hypertension; K21.9 Gastro-esophageal reflux disease without esophagitis; Z79.899 Other long term (current) drug therapy; Z79.01 Long term (current) use of anticoagulants; Z88.0 Allergy status to penicillin; Z88.2 Allergy status to sulfonamides; Z88.1 Allergy status to other antibiotic agents; Z91.041 Radiographic dye allergy status; Z88.8 Allergy status to other drugs, medicaments and biological substances
CPT/HCPCS: 73630-26-RT; 73630-RT; 99283; 99284-25